=== PATIENT | female | born 1950 | race Caucasian/White ===

== ENCOUNTER → 2025-08-10 09:05 | Outpatient (BNVA) | payer MEDICARE, OTHER, SELFPAY | PROVIDERS: Visit Provider Dermatology | DX: D18.01 Hemangioma of skin and subcutaneous tissue (principal); L81.4 Other melanin hyperpigmentation; L57.8 Other skin changes due to chronic exposure to nonionizing radiation; B07.8 Other viral warts | CPT/HCPCS: 17110; 99203 ==